=== PATIENT | female | born 1965 | race Caucasian/White ===

== ENCOUNTER 2016-06-18 18:23 | Emergency (ER) | payer OTHER ==
--- NOTE | 2016-06-18 22:32 | CT ---
PRELIMINARY REPORT/[facility]/EMERGENCY AFTER HOURS PROCEDURE: EXAM: CT Head Without Intravenous Contrast. CLINICAL HISTORY: 51 years old, female; Injury or trauma; Fall; Initial encounter; Blunt trauma (contusions or hematom as); Injury date: 06/18/2016; Injury details: Pt presents to the er for fall; Patient states falling at 0700 this morning. Slipped and fell. Did hit back of head. Unknown loc. Patient states she is st ill having a headache and wants to make sure she is okay TECHNIQUE: Axial computed tomography images of the head/brain without intravenous contrast. COMPARISON: No relevant prior studies available. FINDINGS: Brain: No intracranial hemorrhage. No CT evidence of acute ischemia. Ventricles: No ventriculomegaly. The subarachnoid cisterns and extar-axial CSF spaces are unremarkab le. Bones/joints: Unremarkable. No acute fracture. Soft tissues: Unremarkable. Sinuses: No acute sinusitis. Mastoid air cells: No mastoid effusion. IMPRESSION: No acute intracranial pathology. Thank you for allowing us to participate in the care of your patient. Dictated and Authenticated by: Franco Barcenas MD 06/18/2016 7:15 PM Central Time ([place] \T\ [place]) FINAL REPORT CT OF THE BRAIN WITHOUT CONTRAST 06/18/[address] was performed for evaluation following trauma. The ventricles are normal in size with no shift. No intracranial bleeding, mass or sign of stroke wa s found. The calvarium appears intact. The sphenoid sinus is clear. IMPRESSION: No acute intracranial findings. Report in agreement with preliminary reading by [facility]. POS: HOME
--- NOTE | 2016-06-18 23:31 | CT ---
PRELIMINARY REPORT/[facility]/EMERGENCY AFTER HOURS PROCEDURE: EXAM: CT Cervical Spine Without Intravenous Contrast. CLINICAL HISTORY: 51 years old, female; Injury or trauma; Fall; Initial encounter; Blunt trauma; Injury date: 06/19/19 17; Injury details: Pt presents to the er for fall; Patient states falling at 0700 this morning. Sli pped and fell. Did hit back of head. Unknown loc. Patient states she is still having a headache and wants to make s ure she is okay; Patient HX: Patient morbidly obese TECHNIQUE: Axial computed tomography images of the cervical spine without intravenous contrast. Coronal and sagittal reformatted images were created and reviewed. COMPARISON: No relevant prior studies available. FINDINGS: Osseous structures: There is no evidence of acute fracture or spondylolisthesis. The cervical alignment is normal. Straightening of the normal lordosis The vertebral body heights are well-maintained. Mild to moderate multilevel degenerative facet change The osseous skull base is normal. Intervertebral discs: Mild to moderate multilevel degenerative disc change There is no evidence of significant central canal stenosis. Soft tissues: The soft tissues of the neck and paraspinal musculature are unremarkable. Visualized lung apices are unremarkable IMPRESSION: Mild to moderate multilevel degenerative disc and degenerative facet change without evidence of acut e fracture Thank you for allowing us to participate in the care of your patient. Dictated and Authenticated by: Franco Barcenas MD 06/18/2016 7:26 PM Central Time ([place] \T\ [place]) FINAL REPORT CT OF THE CERVICAL SPINE 06/18/[address] of the cervical spine was performed following trauma. Axial slices were acquired and then coronal and sagittal reconstructions were done. There is straightening of the C-spine that could be due to spasm. No fracture or dislocation was se en. The C1 to dens distance is normal, and the soft tissues are normal in thickness. There is cons iderable beam hardening artifact over the lower cervical spine from the shoulders. This is particul charley true at the C5 level and below and becomes progressively worse as one goes inferiorly. Thus, d etail in the lower cervical levels is more limited. Findings by level follow: C1-C2: No acute findings. C2-C3: No acute findings. C3-C4: Some disk osteophyte complex present, particularly in the right paracentral region. There i s moderate right foraminal narrowing by osteophytes. C4-C5: No acute findings. C5-C6: There is a little bit of posterior disk osteophyte complex, but this level is difficult to a ssess due to the beam hardening artifact. There is probably at least mild bilateral foraminal narro wing. C6-C7: Detail is extremely poor at this level. No gross fracture was seen. It is difficult to com pletely evaluate the foramina. C7-T1: Beam hardening artifact renders this level almost unreadable. IMPRESSION: 1. Loss of cervical lordosis which could be due to spasm. 2. Multilevel degenerative disease as noted. 3. Lower cervical level seen very poorly as stated above. Report in agreement with the preliminary reading by [facility]. POS: HOME
== END 2016-06-18 20:00 | disposition home or self-care (01) ==
LOC: BURERS 18:23
DX: S06.9X1A Unspecified intracranial injury with loss of consciousness of 30 minutes or less, initial encounter (principal); S13.4XXA Sprain of ligaments of cervical spine, initial encounter; E11.9 Type 2 diabetes mellitus without complications; E78.5 Hyperlipidemia, unspecified; E78.00 Pure hypercholesterolemia, unspecified; I10 Essential (primary) hypertension; J45.909 Unspecified asthma, uncomplicated; G43.909 Migraine, unspecified, not intractable, without status migrainosus; F41.9 Anxiety disorder, unspecified; F32.9 Major depressive disorder, single episode, unspecified; W19.XXXA Unspecified fall, initial encounter
CPT/HCPCS: 70450; 72125